=== PATIENT | male | born 1990 | race Caucasian/White ===

== ENCOUNTER 2017-07-05 07:09 | Day surgery (SDC) | payer OTHER ==
[2017-07-05] MEDS: LR 1,000 ML IV (07:10)
[2017-07-05] MEDS ORDERED: LIDOCAINE 2% INJ 100 MG/5 ML SDV (FOR ANES.) As Ordered (10:27)
[2017-07-05] MEDS ORDERED: fentaNYL 100 MCG/2 ML INJECTION (J3010) As Ordered ×2 (10:28→13:06)
[2017-07-05] MEDS ORDERED: PROPOFOL 200 MG/20 ML VIAL As Ordered (10:28)
[2017-07-05] MEDS ORDERED: MIDAZOLAM INJ 2 MG/2 ML VIAL (J2250) As Ordered (10:28)
[2017-07-05] MEDS: LIDOCAINE 1% SDV INJ 30 ML VIAL As Ordered (12:46)
[2017-07-05] MEDS ORDERED: ONDANSETRON 4MG/2ML VIAL (J2405) As Ordered (13:05)
[2017-07-05] MEDS ORDERED: KETOROLAC 60 MG/2 ML VIAL (J1885) As Ordered (13:05)
[2017-07-05] MEDS: BUPIVACAINE/EPIN 0.5% 30 ML VIAL As Ordered (13:42)
[2017-07-05] MEDS ORDERED: LR 1,000 ML IV ×2 (14:15)
[2017-07-05] MEDS ORDERED: NORCO, ANEXSIA 5/325MG TABLET (HYDROcodone/ACETAMINOPHEN) PO (14:15)
[2017-07-05] MEDS ORDERED: ONDANSETRON 4MG/2ML VIAL (J2405) IV (14:15)
[2017-07-05] MEDS ORDERED: PERCOCET 5MG/325MG TAB PO (14:15)
[2017-07-05] MEDS ORDERED: KETOROLAC 30 MG/ML VIAL (J1885) IV (19:00)
== END 2017-07-05 15:20 | disposition home or self-care (01) ==
LOC: M SDC 07:09
DX: D17.9 Benign lipomatous neoplasm, unspecified (principal)
CPT/HCPCS: 11403